=== PATIENT | female | born 1965 | race Caucasian/White ===

== ENCOUNTER 2022-03-24 15:53 | Emergency (ER) | payer OTHER ==
[2022-03-24 16:04] VITALS: BP 157/88; PULSE 73; RESP 18; TEMP 98; BMI 24.3
[2022-03-24] MEDS ORDERED: IBUPROFEN 600 MG TABLET (FP) PO ONE ×2 (18:37→18:39)
== END 2022-03-24 18:47 | disposition home or self-care (01) ==
LOC: JERFT 15:53
DX: M25.511 Pain in right shoulder (principal)
CPT/HCPCS: 99283-25

== ENCOUNTER 2024-04-09 14:30 | Emergency (ER) | payer OTHER ==
[2024-04-09 14:38] VITALS: BP 150/82; PULSE 73; RESP 18; TEMP 99.4; BMI 26.6
[2024-04-09] MEDS ORDERED: KETOROLAC TROMETHAMINE 30 MG/1 ML VIAL ONE (15:24)
[2024-04-09] MEDS: KETOROLAC TROMETHAMINE 30 MG/1 ML VIAL IM ONE (15:28)
== END 2024-04-09 16:47 | disposition home or self-care (01) ==
LOC: JERFT 14:30
PROC: 3E0133Z Introduction of Anti-inflammatory into Subcutaneous Tissue, Percutaneous Approach (ICD-10-PCS; principal; 2024-04-09)
DX: S43.491A Other sprain of right shoulder joint, initial encounter (principal); X58.XXXA Exposure to other specified factors, initial encounter
CPT/HCPCS: 73030-TC-RT-FY; 99284-25